=== PATIENT | female | born 1980 | race Caucasian/White ===

== ENCOUNTER 2018-01-02 09:45 | Inpatient (IN) | payer BC ==
[2018-01-02] MEDS: SOD CHLORIDE 0.9% 1,000 ML IV ×2 (07:00→17:48)
[~2018-01-02 09:45] MED LIST: CLINDAMYCIN 600 MG/D5W (PMX) 50 ML IVPB
[2018-01-02] MEDS ORDERED: MIDAZOLAM 1 MG/ML 2 ML INJ (13:55)
[2018-01-02] MEDS: BUPIVACAINE 0.25% (MPF) 30 ML INJ (15:35)
[2018-01-02] MEDS: POLYMYXIN/BACITRACIN 1L IRRIG IRR (15:37)
[2018-01-02] MEDS ORDERED: PROPOFOL 20 ML (15:57)
[2018-01-02] MEDS ORDERED: LIDOCAINE 2% (SDV) 5 ML INJ (15:57)
[2018-01-02] MEDS ORDERED: GLYCOPYRROLATE 0.4 MG INJ (15:57)
[2018-01-02] MEDS ORDERED: ROCURONIUM 50 MG INJ (15:57)
[2018-01-02] MEDS ORDERED: NEOSTIGMINE 3 MG/3 ML SYRINGE (15:57)
[2018-01-02] MEDS ORDERED: CEFAZOLIN 1 GM INJ (15:57)
[2018-01-02] MEDS ORDERED: HYDROmorphONE 1 MG/5 ML IV SYRINGE IV ×3 (16:04→16:30)
[2018-01-02] MEDS: HYDROmorphONE 1 MG/5 ML IV SYRINGE IV ×5 (16:06→16:30)
[2018-01-02 16:12] LABS: ADD MAN DIFF? NO
[2018-01-02] MEDS ORDERED: MEPERIDINE 25 MG INJ (16:16)
[2018-01-02] MEDS ORDERED: ONDANSETRON 4 MG INJ (16:17)
[2018-01-02 16:18] LABS: WHITE BLOOD COUNT 15.7 10^3/ul (4.8-10.8)
[2018-01-02 16:18] LABS: BASOPHIL # 0.1 10^3/ul (0.0-0.1); BASOPHILS % 0.3 % (0.0-2.0); EOSINOPHILS # 0.2 10^3/ul (0.0-0.5); EOSINOPHILS % 1.3 % (0.0-7.0); HEMATOCRIT 42.7 % (37.0-47.0); HEMOGLOBIN 14.2 g/dl (12.0-16.0); LYMPHOCYTES # 4.1 10^3/ul (0.8-2.9); LYMPHOCYTES % 26.3 % (15.0-51.0); MEAN CORPUSCULAR HEMOGLOBIN 29.3 pg (29.0-33.0); MEAN CORPUSCULAR HGB CONC 33.3 g/dl (32.0-37.0); MEAN CORPUSCULAR VOLUME 88.2 fl (82.0-101.0); MEAN PLATELET VOLUME 9.7 fl (7.4-10.4); MONOCYTE # 0.9 10^3/ul (0.3-0.9); MONOCYTES % 5.7 % (0.0-11.0); NEUTROPHIL # 10.4 10^3/ul (1.6-7.5); PLATELET COUNT 437 10^3/UL (140-415); RED BLOOD COUNT 4.84 10^6/ul (4.20-5.40); RED CELL DISTRIBUTION WIDTH 13.5 % (11.5-14.5)
[2018-01-02 16:23] LABS: HOLD TRANSMISSIONS 1
[2018-01-02] MEDS ORDERED: morphine (1 MG/ML) 10ML SYRINGE IV (16:30)
[2018-01-02] MEDS ORDERED: DIPHENHYDRAMINE 50 MG INJ IV (16:30)
[2018-01-02 16:37] LABS: ALANINE AMINOTRANSFERASE 24 IU/L (13-69); ALBUMIN 4.1 g/dl (3.3-4.9); ALBUMIN/GLOBULIN RATIO 1.13; ALKALINE PHOSPHATASE 69 IU/L (42-121); ANION GAP 11 (5-13); ASPARTATE AMINO TRANSFERASE 25 IU/L (15-46); BILIRUBIN,INDIRECT 1.1 mg/dl (0-1.1); BILIRUBIN,TOTAL 1.1 mg/dl (0.2-1.3); BLOOD UREA NITROGEN 10 mg/dl (7-20); CALCIUM 8.7 mg/dl (8.4-10.2); CARBON DIOXIDE 20 mmol/L (21-31); CHLORIDE 107 mmol/L (97-110); CREATININE 0.69 mg/dl (0.44-1.00); Estimated GFR > 60 mL/min (>60); GLUCOSE 117 mg/dl (70-220); POTASSIUM 3.4 mmol/L (3.5-5.1); SODIUM 138 mmol/L (135-144); TOTAL PROTEIN 7.7 g/dl (6.1-8.1)
[2018-01-02] MEDS: MEPERIDINE 25 MG INJ IV (16:49)
[2018-01-02] MEDS: FENTAnyl 50 MCG/ML VIAL IV ×3 (16:54→17:06)
[2018-01-02] MEDS: ONDANSETRON 4 MG INJ IV ×2 (16:54→21:17)
[2018-01-02] MEDS ORDERED: morphine 2 MG INJ ×2 (17:10→17:31)
[2018-01-02] MEDS: morphine (1 MG/ML) 10ML SYRINGE IV ×2 (17:11→17:33)
[2018-01-02] MEDS: CLINDAMYCIN 900 MG/D5W (PMX) 50 ML IVPB ×2 (17:36→23:47)
[2018-01-02] MEDS: morphine 2 MG INJ IV ×2 (21:17→23:48)
[2018-01-02] MEDS ORDERED: ACETAMINOPHEN 325 MG TAB PO (21:30)
[2018-01-03] MEDS: morphine 2 MG INJ IV ×7 (01:50→23:50)
[2018-01-03] MEDS: ONDANSETRON 4 MG INJ IV ×5 (01:50→18:53)
[2018-01-03] MEDS: SOD CHLORIDE 0.9% 1,000 ML IV ×3 (03:50→22:30)
[2018-01-03 05:22] LABS: ADD MAN DIFF? NO
[2018-01-03 05:25] LABS: BASOPHILS % 0.2 % (0.0-2.0); HEMATOCRIT 40.9 % (37.0-47.0); HEMOGLOBIN 13.7 g/dl (12.0-16.0); LYMPHOCYTES # 1.2 10^3/ul (0.8-2.9); LYMPHOCYTES % 9.3 % (15.0-51.0); MEAN CORPUSCULAR HEMOGLOBIN 29.7 pg (29.0-33.0); MEAN CORPUSCULAR HGB CONC 33.5 g/dl (32.0-37.0); MEAN CORPUSCULAR VOLUME 88.7 fl (82.0-101.0); MEAN PLATELET VOLUME 9.9 fl (7.4-10.4); MONOCYTES % 7.8 % (0.0-11.0); NEUTROPHIL # 10.4 10^3/ul (1.6-7.5); NEUTROPHILS % 82.2 % (39.0-77.0); PLATELET COUNT 391 10^3/UL (140-415); RED BLOOD COUNT 4.61 10^6/ul (4.20-5.40); RED CELL DISTRIBUTION WIDTH 13.7 % (11.5-14.5)
[2018-01-03 05:25] LABS: WHITE BLOOD COUNT 12.7 10^3/ul (4.8-10.8)
[2018-01-03 05:47] LABS: ALANINE AMINOTRANSFERASE 25 IU/L (13-69); ALBUMIN 3.8 g/dl (3.3-4.9); ALBUMIN/GLOBULIN RATIO 1.18; ALKALINE PHOSPHATASE 57 IU/L (42-121); ANION GAP 8 (5-13); ASPARTATE AMINO TRANSFERASE 24 IU/L (15-46); BILIRUBIN,INDIRECT 1.4 mg/dl (0-1.1); BILIRUBIN,TOTAL 1.4 mg/dl (0.2-1.3); BLOOD UREA NITROGEN 8 mg/dl (7-20); CALCIUM 8.4 mg/dl (8.4-10.2); CARBON DIOXIDE 23 mmol/L (21-31); CHLORIDE 107 mmol/L (97-110); CREATININE 0.65 mg/dl (0.44-1.00); Estimated GFR > 60 mL/min (>60); GLUCOSE 122 mg/dl (70-220); POTASSIUM 4.2 mmol/L (3.5-5.1); SODIUM 138 mmol/L (135-144)
[2018-01-03] MEDS: CLINDAMYCIN 900 MG/D5W (PMX) 50 ML IVPB ×3 (05:53→17:15)
[2018-01-03] MEDS: HYDROCODONE/APAP (5/325) TAB PO ×2 (10:08→14:50)
[2018-01-03] MEDS: PANTOPRAZOLE 40 MG INJ IV (17:05)
[2018-01-03] MEDS: KETOROLAC 15 MG INJ IV ×2 (17:05→23:50)
[2018-01-04] MEDS: SOD CHLORIDE 0.9% 1,000 ML IV ×3 (05:09→21:52)
[2018-01-04] MEDS: KETOROLAC 15 MG INJ IV ×3 (05:10→17:42)
[2018-01-04 05:34] LABS: ADD MAN DIFF? NO
[2018-01-04 05:44] LABS: BASOPHILS % 0.4 % (0.0-2.0); EOSINOPHILS # 0.4 10^3/ul (0.0-0.5); EOSINOPHILS % 3.8 % (0.0-7.0); HEMATOCRIT 36.8 % (37.0-47.0); HEMOGLOBIN 12.4 g/dl (12.0-16.0); LYMPHOCYTES # 2.3 10^3/ul (0.8-2.9); LYMPHOCYTES % 20.9 % (15.0-51.0); MEAN CORPUSCULAR HEMOGLOBIN 29.8 pg (29.0-33.0); MEAN CORPUSCULAR HGB CONC 33.7 g/dl (32.0-37.0); MEAN CORPUSCULAR VOLUME 88.5 fl (82.0-101.0); MEAN PLATELET VOLUME 10.1 fl (7.4-10.4); NEUTROPHIL # 7.2 10^3/ul (1.6-7.5); NEUTROPHILS % 65.6 % (39.0-77.0); PLATELET COUNT 342 10^3/UL (140-415); RED BLOOD COUNT 4.16 10^6/ul (4.20-5.40); RED CELL DISTRIBUTION WIDTH 14.1 % (11.5-14.5)
[2018-01-04 05:44] LABS: WHITE BLOOD COUNT 10.9 10^3/ul (4.8-10.8)
[2018-01-04] MEDS: morphine 2 MG INJ IV ×5 (06:12→21:45)
[2018-01-04] MEDS: HYDROCODONE/APAP (5/325) TAB PO (15:21)
[2018-01-04] MEDS: DOCUSATE SODIUM 100 MG CAP PO (21:45)
[2018-01-04] MEDS: ONDANSETRON 4 MG INJ IV (21:45)
[2018-01-05] MEDS: KETOROLAC 15 MG INJ IV ×4 (00:24→17:30)
[2018-01-05] MEDS: morphine 2 MG INJ IV ×2 (00:24→05:50)
[2018-01-05 05:48] LABS: ADD MAN DIFF? NO
[2018-01-05] MEDS: SOD CHLORIDE 0.9% 1,000 ML IV ×2 (05:50→16:01)
[2018-01-05 05:51] LABS: BASOPHIL # 0.1 10^3/ul (0.0-0.1); BASOPHILS % 0.5 % (0.0-2.0); EOSINOPHILS # 0.4 10^3/ul (0.0-0.5); HEMATOCRIT 35.5 % (37.0-47.0); HEMOGLOBIN 11.7 g/dl (12.0-16.0); LYMPHOCYTES # 2.7 10^3/ul (0.8-2.9); LYMPHOCYTES % 20.9 % (15.0-51.0); MEAN CORPUSCULAR HEMOGLOBIN 29.4 pg (29.0-33.0); MEAN CORPUSCULAR VOLUME 89.2 fl (82.0-101.0); MEAN PLATELET VOLUME 10.2 fl (7.4-10.4); MONOCYTE # 1.2 10^3/ul (0.3-0.9); MONOCYTES % 8.9 % (0.0-11.0); NEUTROPHIL # 8.7 10^3/ul (1.6-7.5); NEUTROPHILS % 66.5 % (39.0-77.0); PLATELET COUNT 375 10^3/UL (140-415); RED BLOOD COUNT 3.98 10^6/ul (4.20-5.40); RED CELL DISTRIBUTION WIDTH 14.1 % (11.5-14.5)
[2018-01-05 05:51] LABS: WHITE BLOOD COUNT 13.1 10^3/ul (4.8-10.8)
[2018-01-05] MEDS: HYDROCODONE/APAP (5/325) TAB PO ×2 (10:05→17:30)
[2018-01-05] MEDS: ONDANSETRON 4 MG INJ IV (10:05)
== END 2018-01-05 19:40 | disposition home or self-care (01) | DRG 355 ==
LOC: REC 09:45 → PP2 18:29
PROC: 0WUF0JZ Supplement Abdominal Wall with Synthetic Substitute, Open Approach (ICD-10-PCS; principal; 2018-01-02 13:00)
PROC: 0KXL0ZZ Transfer Left Abdomen Muscle, Open Approach (ICD-10-PCS; 2018-01-02 13:00)
PROC: 0KXK0ZZ Transfer Right Abdomen Muscle, Open Approach (ICD-10-PCS; 2018-01-02 13:00)
DX: K43.0 Incisional hernia with obstruction, without gangrene (principal); E66.9 Obesity, unspecified; G89.18 Other acute postprocedural pain; Z68.35 Body mass index [BMI] 35.0-35.9, adult
CPT/HCPCS: 80053; 84703; 85025; 87086; 88302